=== PATIENT | male | born 1955 | race Caucasian/White ===

== ENCOUNTER → 2017-03-19 | Outpatient (CLI) | payer MEDICARE, MEDICAID | END | disposition home or self-care (01) | LOC: HKI 14:30 | DX: M25.552 Pain in left hip (principal); M25.551 Pain in right hip; F20.9 Schizophrenia, unspecified | CPT/HCPCS: 73522 ==

== ENCOUNTER → 2017-03-23 | Outpatient (CLI) | payer MEDICARE, MEDICAID | END | disposition home or self-care (01) | LOC: HKI 13:56 | DX: M87.9 Osteonecrosis, unspecified (principal) | CPT/HCPCS: G0463 ==

== ENCOUNTER → 2017-05-25 | Outpatient (CLI) | payer MEDICARE, MEDICAID | END | disposition home or self-care (01) | LOC: HKI 14:54 | DX: M16.10 Unilateral primary osteoarthritis, unspecified hip (principal) | CPT/HCPCS: 73502 ==

== ENCOUNTER → 2017-08-20 | Outpatient (CLI) | payer MEDICARE, OTHER, MEDICAID | END | disposition home or self-care (01) | LOC: HKI 09:06 | DX: M16.11 Unilateral primary osteoarthritis, right hip (principal); F20.9 Schizophrenia, unspecified | CPT/HCPCS: 73502; 73562-RT ==